=== PATIENT | female | born 1945 | race Caucasian/White ===

== ENCOUNTER 2016-07-28 08:50 | Day surgery (SDC) | payer MEDICARE, OTHER ==
[~2016-07-28] VITALS: Ht 162.6 cm; Wt 92.1 kg
[~2016-07-28 08:50] MED LIST: ACET1TAB42 PO; ASPI-973 PO; ATOR20TA PO; CHOL3000 PO; DOCU-41 PO; GABA-502 PO; HYDR-4003 PO; KETO120S TOP; KETO200S2 TOP
[2016-07-28 09:34] VITALS: BP 116/73; PULSE 74; O2SAT 96
--- NOTE | 2016-07-28 16:33 | PCM.PROC ---
Procedure Note Date of Service: Jul 28, 2016 Pre Procedure Diagnosis: LEFT L3-L4-L5 medial branch block with 0.25% bupivacaine canceled secondary to insufficient pain Review of lumbar MRI with patient Schedule for L1-L2 interlaminar epidural steroid injection Leighton Holloway MD Jul 28, 2016 16:33
[2016-08-10] MEDS ORDERED: HYDR-4003 PO (15:46)
== END 2016-07-28 23:59 | disposition home or self-care (01) ==
LOC: END 08:50
PROVIDERS: ATTEND Anesthesiology Pain Medicine
DX: M48.06 Spinal stenosis, lumbar region (principal); Z53.09 Procedure and treatment not carried out because of other contraindication

== ENCOUNTER 2016-08-11 13:51 | Day surgery (SDC) | payer MEDICARE, OTHER ==
[~2016-08-11] VITALS: Ht 162.6 cm; Wt 95.2 kg
[~2016-08-11 13:51] MED LIST changes: -ACET1TAB42 PO; -DOCU-41 PO; -KETO120S TOP; -KETO200S2 TOP
[2016-08-11] MEDS ORDERED: MethylprednisoLONE Depot 80 mg/mL Inj ONE (13:52)
[2016-08-11] MEDS ORDERED: Iohexol 240 mg/mL 10 mL Inj ONE (13:52)
[2016-08-11 14:40] VITALS: BP 124/69; PULSE 76; O2SAT 97
[2016-08-11 14:58] VITALS: BP 149/85; PULSE 81; RESP 16; O2SAT 96
--- NOTE | 2016-08-11 15:41 | PCM.PROC ---
Procedure Note Date of Service: Aug 11, 2016 Pre Procedure Diagnosis: PROCEDURE: Lumbar Interlaminar epidural steroid injection. L1-L2 ASA / ANTI-COAGULATION . No asa x 7 days. PRE-PROCEDURE DIAGNOSIS: Lumbar spinal stenosis/radiculopathy POST-PROCEDURE DIAGNOSIS: same INDICATION: 71-year-old patient with low back and leg pain consistent with lumbar spinal stenosis/radiculopathy PERFORMED BY: Leighton Holloway MD DESCRIPTION OF PROCEDURE: Patient was met in the holding area. Consent was signed, site was confirmed and all questions were answered. Patient was taken to the procedure suite and placed prone on the procedure table. Area was prepped and draped in sterile fashion. Local anesthesia with 1% lidocaine was injected. An 18-gauge Touhy needle was advanced toward the interlaminar space using fluoroscopic guidance after optimizing the AP view. A loss of resistance syringe was attached as we approached the epidural space in the lateral view. After [id number] was obtained, radioopaque contrast was injected under live fluro which confirmed epidural placement without intravascular uptake. Then , 80 mg depomedrol was injected without difficulty. ANESTHESIA: Local. EBL: None. No Blood Products Used COMPLICATIONS: None SPECIMENS: None POST-PROCEDURE DISPOSITION: Patient was returned to the holding area in stable condition. They were discharged home when all discharge criteria were met. Evaluation/Physical Exam before discharge revealed: DISCHARGE MEDICATIONS: FOLLOW UP: Return to clinic in 4 weeks Leighton Holloway MD * Pain Management * Anesthesiology Leighton Holloway MD Aug 11, 2016 15:41
== END 2016-08-11 23:59 | disposition home or self-care (01) ==
LOC: END 13:51
PROVIDERS: ATTEND Anesthesiology Pain Medicine
DX: M48.06 Spinal stenosis, lumbar region (principal); M54.16 Radiculopathy, lumbar region; Z79.82 Long term (current) use of aspirin
CPT/HCPCS: 62323; J1040

== ENCOUNTER 2016-11-03 09:32 | Day surgery (SDC) | payer MEDICARE, OTHER ==
[~2016-11-03] VITALS: Ht 163.8 cm; Wt 100.0 kg
[2016-11-03] MEDS ORDERED: Iohexol 240 mg/mL 10 mL Inj ONE (09:33)
[2016-11-03] MEDS ORDERED: Bupivacaine-MPF 0.25% 30 mL Inj ONE (09:33)
[2016-11-03 10:10] VITALS: BP 125/73; PULSE 67; RESP 20; O2SAT 97
--- NOTE | 2016-11-03 15:00 | PCM.PROC ---
Procedure Note Date of Service: November 03, 2016 Pre Procedure Diagnosis: PROCEDURE: Diagnostic medial branch block of the Lumbar facet joints LEFT L3-L4 , L4-L5, L5-S1. First injection. 0.25% bupivacaine PRE-PROCEDURE DIAGNOSIS: Lumbar spondylosis POST-PROCEDURE DIAGNOSIS: same INDICATION: 71-year-old patient with greater than 3 months of moderate to severe axial LBP, refractory to conservative management, including NSAIDS and PT. PERFORMED BY: Leighton Holloway MD DESCRIPTION OF PROCEDURE: Patient was met in the holding area. Consent was signed, site was confirmed and all questions were answered. Patient was taken to the procedure suite and placed prone on the procedure table. At each level, the vertebral endplates were used to optimize fluoroscopic position. Local anesthesia was attained with 1% lidocaine. The image intensifier was then rotated ipsilaterally to optimize the "Jomar dog" position. A 25-gauge Quincke spinal needle was advanced towards the junction of the SAP and transverse process at each level. Proper positioning was confirmed in both the AP and lateral views. 0.5 cc of radiopaque contrast was injected to confirm proper position followed by an injection underlying fluoroscopy to minimize the chance of inadvertent vascular uptake. For the L5-M8pxtos joint the final position was the junction of the sacral ala and the S1 superior articulating process After proper positioning was confirmed, 0.5 cc of local anesthetic was injected at each level. ANESTHESIA: Local. EBL: None. No Blood Products Used COMPLICATIONS: None SPECIMENS: None POST-PROCEDURE DISPOSITION: Patient tolerated the procedure well and was returned to the holding area in stable condition. They were discharged home when all discharge criteria were met. DISCHARGE MEDICATIONS: None FOLLOW UP: Pain diary, Return to discuss Leighton Holloway MD * Pain Management * Anesthesiology .ED: Y: Patient given care and follow up instructions Leighton Holloway MD November 03, 2016 15:00
== END 2016-11-03 23:59 | disposition home or self-care (01) ==
LOC: END 09:32
PROVIDERS: ATTEND Anesthesiology Pain Medicine
DX: M47.816 Spondylosis without myelopathy or radiculopathy, lumbar region (principal); M12.88 Other specific arthropathies, not elsewhere classified, other specified site